=== PATIENT | male | born 1970 | race Caucasian/White ===

== ENCOUNTER 2021-05-08 23:32 | Emergency (ER) | payer OTHER ==
[2021-05-08 23:52] LABS: BASOPHIL 0.4 % (0-2); EOSINOPHIL 0.1 % (0-5); HCT 48.9 % (42.0-52.0); LYMPHOCYTE 19.8 % (15-48); MCHC 34.8 g/dL (32.0-36.0); MCV 89.2 fL (78.0-100.0); MPV 8.9 fL (6.0-9.5); NEUTROPHIL 71.4 % (41-80); NRBC 0; PLT 235 K/uL (150-400); RBC 5.48 M/uL (4.70-6.00); WBC 12.6 K/uL (4.0-10.5)
[2021-05-09 00:06] LABS: ALBUMIN 4.6 g/dL (3.4-5.0); BILIRUBIN - TOTAL 0.7 mg/dL (0.2-1.0); CREATININE 1.16 mg/dL (0.67-1.17); GLOBULIN (CALCULATION) 3.5 g/dL; POTASSIUM 3.6 mmol/L (3.5-5.1); TOTAL PROTEIN 8.1 g/dL (6.4-8.2)
[2021-05-09 00:12] LABS: LACTIC ACID 1.4 mmol/L (0.4-1.9)
== END 2021-05-09 03:15 | disposition home or self-care (01) ==
LOC: FER 23:32
PROVIDERS: Emergency Medicine
DX: R07.89 Other chest pain (principal); F14.90 Cocaine use, unspecified, uncomplicated; F17.200 Nicotine dependence, unspecified, uncomplicated; Z88.0 Allergy status to penicillin
CPT/HCPCS: 36415; 71045; 71275; 80053; 83605; 84484; 85025; 85379; 86140; 87040; 93005; J7030; Q9967

== ENCOUNTER 2021-08-09 19:04 | Emergency (ER) | payer OTHER ==
[2021-08-09 19:51] LABS: BASOPHIL 0.3 % (0-2); EOSINOPHIL 0 % (0-5); HCT 42.9 % (42.0-52.0); HGB 15.4 g/dl (13.2-18.0); LYMPHOCYTE 17.9 % (15-48); MCH 31.9 pg (25.0-31.0); MCHC 35.9 g/dL (32.0-36.0); MCV 88.8 fL (78.0-100.0); MONOCYTE 6.4 % (0-12); MPV 8.9 fL (6.0-9.5); NEUTROPHIL 75.1 % (41-80); NRBC 0; PLT 236 K/uL (150-400); RBC 4.83 M/uL (4.70-6.00); RDW 12.9 % (11.5-14.0); WBC 13.6 K/uL (4.0-10.5)
[2021-08-09 20:01] LABS: INR 1.1 (0.9-1.2); PROTHROMBIN TIME 13.6 SECONDS (11.8-13.4)
[2021-08-09 20:06] LABS: AMPHETAMINES NEGATIVE (NEGATIVE); BARBITURATES NEGATIVE (NEGATIVE); ECSTASY (MDMA) NEGATIVE (NEGATIVE); MARIJUANA (THC) NEGATIVE (NEGATIVE); METHADONE NEGATIVE (NEGATIVE); OPIATES NEGATIVE (NEGATIVE); OXYCODONE POSITIVE (NEGATIVE)
[2021-08-09 20:24] LABS: ALBUMIN 4.4 g/dL (3.4-5.0); BILIRUBIN - TOTAL 0.7 mg/dL (0.2-1.0); CREATININE 1.06 mg/dL (0.67-1.17); GLOBULIN (CALCULATION) 2.9 g/dL; MAGNESIUM 1.7 mg/dL (1.8-2.4); POTASSIUM 3.5 mmol/L (3.5-5.1); TOTAL PROTEIN 7.3 g/dL (6.4-8.2)
== END 2021-08-09 23:34 | disposition home or self-care (01) ==
LOC: FER 19:04
PROVIDERS: Emergency Medicine
DX: R07.89 Other chest pain (principal); F17.200 Nicotine dependence, unspecified, uncomplicated
CPT/HCPCS: 36415; 71045; 80053; 80305; 83735; 83880; 84484; 85025; 85610; 93005; J3475; J7050

== ENCOUNTER → 2021-12-31 | Day surgery (SDC) | payer OTHER ==
[~2021-12-31] VITALS: Ht 182.9 cm; Wt 90.8 kg
== END | disposition home or self-care (01) ==
LOC: FAS 10:36
DX: R19.5 Other fecal abnormalities (principal); K29.50 Unspecified chronic gastritis without bleeding; B96.81 Helicobacter pylori [H. pylori] as the cause of diseases classified elsewhere; R63.4 Abnormal weight loss; Z86.010 Personal history of colon polyps; E78.00 Pure hypercholesterolemia, unspecified; K21.9 Gastro-esophageal reflux disease without esophagitis; F17.200 Nicotine dependence, unspecified, uncomplicated; F31.9 Bipolar disorder, unspecified; F43.10 Post-traumatic stress disorder, unspecified; Z88.0 Allergy status to penicillin; Z72.89 Other problems related to lifestyle; Z68.29 Body mass index [BMI] 29.0-29.9, adult
CPT/HCPCS: J2250; J2704; J7120